=== PATIENT | female | born 1940 ===

== ENCOUNTER 2020-02-21 11:22 | Emergency (ER) | payer SELFPAY ==
[2020-02-21] MEDS ORDERED: ONDANSETRON 4 MG/2 ML VIAL ONE (21:08)
== END 2020-02-21 21:08 | disposition left against medical advice (07) ==
LOC: MED 11:22
DX: R53.1 Weakness (principal); Z53.21 Procedure and treatment not carried out due to patient leaving prior to being seen by health care provider
CPT/HCPCS: J2405